=== PATIENT | female | born 1975 | race Caucasian/White ===

== ENCOUNTER 2016-09-11 20:40 | Emergency (ER) | payer OTHER ==
[~2016-09-11] VITALS: Ht 144.8 cm; Wt 72.0 kg
[~2016-09-11 20:40] MED LIST: ACET-141 PO; AMI25 PO; AMIT25TA9 PO; CLIN-72 PO; CLIN-73 PO; COLC0.6T6 PO; DAP100 PO; DOCU-159 PO; DULO30CA47 PO; DULO60CA6 PO; ERGO500014 PO; ETHA400T25 PO; FOLI-49 PO; GABA-526 PO; GABA300C PO; HYDR-3498 PO; HYDR-902 PO; HYDR2TAB15 PO; HYDR2TAB3 PO; IBUP-1542 PO; IMIT25 PO; INSU100I14 SC; INSU100I15 SC; ISON300T72 PO; LANTUS SC; LEVO500T72 PO; LEVO750T25 PO; LEVO75TA5 PO; LEVO75TA75 PO; LIDO700A6 TD; LORA0.5T PO; NITR-58 PO; ONDA-43 PO; ONDA4TAB8 PO; POLY119P17 PO; PYRA500T11 PO; PYRI50TA14 PO; RIFA300C3 PO; SIMV5TAB31 PO; SIMV5TAB50 PO
[2016-09-11 20:49] VITALS: Ht 144.8 cm; Wt 72.0 kg
[2016-09-11] MEDS ORDERED: KETOROLAC 60 MG INJ IM STA (21:39)
--- NOTE | 2016-09-11 21:50 | ERD ---
ER Documentation Chief Complaint Date/Time DATE: 09/11/16 TIME: 21:48 Chief Complaint back pain started a week ago HPI 40-year-old female presents here in emergency department for complaints of upper back pain, neck pain started 4 months ago, has been having chronically, worst last 3 days after lifting something heavy while doing grocery shopping. Patient described the pain as sharp pain, 9/10 scale, is worse upon movement. Patient did not take any medications for pain. Patient has history of degenerative disease of the lower back. Patient denies any numbness or tingling. Patient denies any fever or chills. Patient denies any dizziness. Patient denies any chest pain palpitations or regular heartbeat. Patient denies any dyspnea on exertion or dyspnea on lying down. ROS All systems reviewed and are negative except as per history of present illness. Medications Home Meds Active Scripts Hydrocodone/Acetaminophen ([place] 10-325 Tablet) 1 Each Tablet, 1 TAB PO Q6H Y for PAIN, #20 TAB Prov:SG CASTORENA DO 07/29/16 Clindamycin Hcl* (Clindamycin Hcl*) 300 Mg Capsule, 300 MG PO TID for 10 Days, CAP Prov:LUDMILA CASTORENASTVALERIAS A. DO 07/29/16 Levofloxacin* (Levaquin*) 750 Mg Tablet, 750 MG PO DAILY for 10 Days, TAB Prov:LUDMILA CASTORENASTVALERIAS Kwame. DO 07/29/16 Ibuprofen* (Motrin*) 600 Mg Tab, 600 MG PO Q6H Y for PAIN AND OR ELEVATED TEMP, #30 TAB Prov:KYLE SADLER NP 05/15/16 Nitrofurantoin Monohyd Macrocr* (Macrobid*) 100 Mg Capsr, 100 MG PO BID for 5 Days, CAP Prov:SINDHU STRONG NP 12/10/15 Hydrocodone Bit-Acetaminophen* ([place]*) 5-325 Mg Tab, 1 TAB PO Q6 Y for PAIN, # 7 TAB Prov:SINDHU STRONG NP 12/10/15 Clindamycin Hcl* (Cleocin*) 150 Mg Cap, 450 MG PO Q8 for 14 Days, CAP Prov:DANII PERKINS 03/17/15 Levofloxacin* (Levaquin*) 500 Mg Tablet, 500 MG PO DAILY, #14 TAB Prov:DANII PERKINS 03/17/15 Hydromorphone Hcl* (Dilaudid*) 2 Mg Tab, 4 MG PO Q4H Y for PAIN LEVEL 1-5, #30 Prov:DANII PERKINS 03/17/15 Reported Medications Sumatriptan Succinate* (Imitrex*) 25 Mg Tablet, 25 MG PO DAILY Y for HEADACHE, TAB May repeat after 2 hours if needed; MAX 200 mg/24 hours 03/05/15 Rifampin* (Rifampin*) 300 Mg Capsule, 600 MG PO DAILY, CAP 03/05/15 Pyridoxine Hcl* (Pyridoxine Hcl*) 50 Mg Tablet, 50 MG PO DAILY, TAB 03/05/15 Pyrazinamide* (Pyrazinamide*) 500 Mg Tablet, 1000 MG PO DAILY, TAB 03/05/15 Isoniazid* (Isoniazid*) 300 Mg Tablet, 300 MG PO DAILY, TAB 03/05/15 Ethambutol HCl* (Myambutol*) 400 Mg Tablet, 800 MG PO DAILY 03/05/15 Simvastatin* (Zocor*) 5 Mg Tablet, 5 MG PO HS, TAB 03/05/15 Lorazepam* (Lorazepam*) 0.5 Mg Tablet, 0.5 MG PO BID Y for AGITATION/ANXIETY, TAB 03/05/15 Polyethylene Glycol 3350 (GLYCOLAX) 225 Gm Powder, 17 GM PO DAILY Y for CONSTIPATION 03/05/15 Ondansetron Hcl* (Zofran*) 4 Mg Tablet, 4 MG PO Q6H Y for NAUSEA AND OR VOMITING , TAB 03/05/15 Lidocaine 5%* (Lidoderm 5%*) 5% - Patch Adh..patch, 2 PATCH TD DAILY, PATCH 03/05/15 Levothyroxine Sodium* (Levothyroxine Sodium*) 75 Mcg Tablet, 75 MCG PO AC BREAKFAST, TAB 03/05/15 Insulin Glargine,Hum.rec.anlog (Lantus Solostar) 100 Units/Ml Pen, 43 UNITS SC HS 03/05/15 Hydromorphone Hcl* (Dilaudid*) 2 Mg Tablet, 2-4 MG PO Q4 Y for PAIN, TAB 03/05/15 Insulin Lispro (Humalog) 100 U/Ml Insuln.pen, 8 UNITS SC TID, EA 6/26/15 Gabapentin* (Gabapentin*) 600 Mg Tablet, 600 MG PO TID, TAB 03/05/15 Folic Acid* (Folic Acid*) 1 Mg Tablet, 1 MG PO DAILY, TAB 03/05/15 Ergocalciferol* (Drisdol* (Vitamin D2)) 50,000 Unit Capsule, 89162 UNIT PO Q7D, CAP 03/05/15 Duloxetine Hcl* (Cymbalta*) 60 Mg Capsule.dr, 60 MG PO DAILY, CAP 03/05/15 Docusate Sodium* (Docusate Sodium*) 100 Mg Capsule, 100 MG PO BID, CAP 03/05/15 Dapsone* (Dapsone*) 100 Mg Tablet, 100 MG PO DAILY, TAB 03/05/15 Amitriptyline Hcl* (Elavil*) 25 Mg Tab, 25 MG PO HS, TAB 03/05/15 Acetaminophen* (Acetaminophen*) 500 MG Extra Strength Tablet, 500 MG PO Q6 Y for PAIN, TAB 03/05/15 Allergies Allergies: Coded Allergies: chlorhexidine (Verified Allergy, Unknown, PT HAS BEEN GETTING HYDROMORPHONE- MD AWARE, OK TO GIVE, 02/13/16) morphine (Verified Allergy, Unknown, rash, 02/13/16) tramadol (Verified Allergy, Unknown, 02/13/16) vancomycin (Verified Allergy, Unknown, 02/13/16) PMhx/Soc History of Surgery: No Anesthesia Reaction: No Hx Neurological Disorder: No Hx Respiratory Disorders: No Hx Cardiac Disorders: No Hx Psychiatric Problems: No Hx Miscellaneous Medical Probl: Yes (herniated disc,diabetes,fibromyalgia, thyroid dz ) Hx Alcohol Use: No Hx Substance Use: No Hx Tobacco Use: No FmHx Family History: No coronary disease, No diabetes, No other Physical Exam Vitals Vital Signs Date Time Temp Pulse Resp B/P Pulse Ox O2 Delivery O2 Flow Rate FiO2 09/11/16 20:49 98.2 102 20 131/78 99 Physical Exam GENERAL: The patient is well developed and appropriate for usual state of health, in no apparent distress. CHEST: Clear to auscultation bilaterally. There are no rales, wheezes or rhonchi. HEART: Regular rate and rhythm. No murmurs, clicks, rubs or gallops. No S3 or S4. ABDOMEN: Soft, nontender and nondistended. Good bowel sounds. No rebound or guarding. No gross peritonitis. No gross organomegaly or masses. No Johnson sign or McBurney point tenderness. BACK: No midline or flank tenderness. Muscle spasms noted in the paraspinal aspect of his cervical and thoracic spine, patient is able to do full range of motion without any restriction EXTREMITIES: Equal pulses bilaterally. There is no peripheral clubbing, cyanosis or edema. No focal swelling or erythema. Full range of motion. Grossly neurovascularly intact. NEURO: Alert and oriented. Cranial nerves 2-12 intact. Motor strength in all 4 extremities with 5/5 strength. Sensation grossly intact. Normal speech and gait. SKIN: There is no apparent rash or petechia. The skin is warm and dry. HEMATOLOGIC AND LYMPHATIC: There is no evidence of excessive bruising or lymphedema. No gross cervical, axillary, or inguinal lymphadenopathy. Results 24 hrs Current Medications Medications (Trade) Dose Ordered Sig/Jackie Route PRN Reason Start Time Stop Time Status Last Admin Dose Admin Diazepam (Valium) 5 mg ONCE ONCE PO 09/11/16 22:00 09/11/16 22:01 DC Ketorolac Tromethamine (Toradol) 60 mg ONCE STAT IM 09/11/16 21:39 09/11/16 21:40 DC Patient was given medication for pain here in emergency department, after treatment, patient verbalized feeling much better. Patient's pain is improved. Patient was given Valium to help with muscle spasms. PROCEDURE: CT Cervical Spine without contrast. CLINICAL INDICATION: 40-year-old female with cervical spine pain. TECHNIQUE: The study was performed on a multislice multidetector CT scanner. Spiral axial 1 mm images were obtained through the cervical spine and reformatted at 2.5 mm slice thickness without contrast. Sagittal and coronal reformations were created from the raw axial data. The images were reviewed on a PACS workstation. RADIATION DOSE: CTDIvol: 20.5 mGy DLP: 362.5 mGy-cm COMPARISON: No prior studies are available for comparison. FINDINGS: There is straightening the cervical spine with reversal of normal cervical lordosis at C4-5. The vertebral body heights are maintained. There is no evidence of fracture or dislocation. The marrow density is within normal limits. There are minimal anterior osteophytes at C5-6 with mild disc-space narrowing. The remaining intervertebral disc spaces appear normal. The cervical canal is unremarkable. There is a no bone destruction or sclerosis. The paraspinal soft tissues are unremarkable. No significant paraspinal soft tissue swelling. C2-3: The posterior margin of the disc, thecal sac and neural foramina are normal in appearance. C3-4: The posterior margin of the disc, thecal sac and neural foramina are normal in appearance. C4-5: The posterior margin of the disc, thecal sac and neural foramina are normal in appearance. C5-6: There is a broad-based 2-3 mm posterior disc/osteophyte complex. The thecal sac measures 8.9 mm midline AP diameter. The neural foramina are patent. C6-7: There is a 1-2 mm posterior disc/osteophyte complex. The thecal sac and neural foramina are patent. C7-T1: The posterior margin of the disc, thecal sac and neural foramina are normal in appearance. IMPRESSION: 1. No acute abnormality of the cervical spine. No evidence of fracture or dislocation. 2. Mild spondylosis at C5-6 without significant narrowing of the cervical thecal sac or neural foramina. 3. Straightening cervical spine which may be related to paraspinal muscle spasm versus positioning. RPTAT: HGAS .Sher Villalba MD, Date Time Electronically viewed and signed by .Sher Villalba MD, on 09/11/2016 22: 02 .S/ CC: KYLE SADLER NP PROCEDURE: CT thoracic spine without contrast. CLINICAL INDICATION: Thoracic spine pain. TECHNIQUE: The study was performed utilizing a multislice multidetector CT scanner. Direct spiral 1 mm axial sections were obtained through the thoracic spine without contrast. Coronal and sagittal reformations were obtained. The images were reviewed on a PACS workstation. RADIATION DOSE: CTDIvol: 25.2 mGy DLP: 896.1 mGy-cm COMPARISON: No prior studies are available for comparison. FINDINGS: The alignment of the thoracic spine is within normal limits. The vertebral body heights and marrow density are normal in appearance. There is no evidence of fracture there are minimal anterior osteophytes from T4-5 to T8-9 with preservation of the intervertebral disc spaces. The paraspinal soft tissues unremarkable. There is no significant narrowing of the thoracic thecal sac or neural foramina. On axial images, the posterior margin of the disc, thecal sac and neural foramina are patent at all levels. IMPRESSION: 1. No acute abnormality of the thoracic spine. No evidence of fracture. 2. Mild degenerative disc disease in the mid thoracic spine without significant narrowing of the thoracic thecal sac or neural foramina. RPTAT: HGAS .Sher Villalba MD, MD Date Time Electronically viewed and signed by .Sher Villalba MD, MD on 09/11/2016 22: 04 .S/ CC: KYLE SADLER W[employer]T WHE[employer]ER Procedures/MDM Medical Decision Making: Patient's pain is most likely consistent with a upper back pain and neck pain from degenerative disc disease. There is no suspicion for neurovascular compromise. Patient has intact sensation and circulation of the distal extremities. There is low suspicion for septic arthritis. Patient does not have any fever. Radiology exams of the affected area does not show any fracture or dislocation. No suspicion for any acute bacterial infection. Disposition: Home. Patient is given prescription for ibuprofen pain, Valium for muscle spasms, [place] for severe pain, patient states that she is able to take it without any reactions from before considering she has allergies to morphine. Patient was advised to rest avoid heavy lifting. Patient was advised that if symptoms are worse, numbness, tingling, high fever, unable to move joint, worsening symptoms, to return to emergency department immediately. Otherwise, patient is advised to follow up with the primary care doctor in 5-7 days for reevaluation of symptoms. Departure Diagnosis: Primary Impression: Back pain Back pain location: thoracic back pain Chronicity: acute Back pain laterality: bilateral Qualified Code: M54.6 - Acute bilateral thoracic back pain Additional Impression: Neck pain Condition: Stable Patient Instructions: Back Pain (Acute Or Chronic), Degenerative Disk Disease, Neck Pain, No Trauma KYLE SADLER NP Sep 11, 2016 21:50
[2016-09-11] MEDS ORDERED: DIAZEPAM 5 MG TAB PO ONE (22:00)
--- NOTE | 2016-09-11 22:03 | RADRPT ---
PROCEDURE: CT Cervical Spine without contrast. CLINICAL INDICATION: 40-year-old female with cervical spine pain. TECHNIQUE: The study was performed on a multislice multidetector CT scanner. Spiral axial 1 mm im ages were obtained through the cervical spine and reformatted at 2.5 mm slice thickness without cont rast. Sagittal and coronal reformations were created from the raw axial data. The images were review ed on a PACS workstation. RADIATION DOSE: CTDIvol: 20.5 mGyDLP: 362.5 mGy-cm COMPARISON: No prior studies are available for comparison. FINDINGS: There is straightening the cervical spine with reversal of normal cervical lordosis at C4-5. The ve rtebral body heights are maintained. There is no evidence of fracture or dislocation. The marrow d ensity is within normal limits. There are minimal anterior osteophytes at C5-6 with mild disc-space narrowing. The remaining intervertebral disc spaces appear normal. The cervical canal is unremarkabl e. There is a no bone destruction or sclerosis. The paraspinal soft tissues are unremarkable. No si gnificant paraspinal soft tissue swelling. C2-3: The posterior margin of the disc, thecal sac and neural foramina are normal in appearance. C3-4: The posterior margin of the disc, thecal sac and neural foramina are normal in appearance. C4-5: The posterior margin of the disc, thecal sac and neural foramina are normal in appearance. C5-6: There is a broad-based 2-3 mm posterior disc/osteophyte complex. The thecal sac measures 8.9 mm midline AP diameter. The neural foramina are patent. C6-7: There is a 1-2 mm posterior disc/osteophyte complex. The thecal sac and neural foramina are patent. C7-T1: The posterior margin of the disc, thecal sac and neural foramina are normal in appearance. IMPRESSION: 1. No acute abnormality of the cervical spine. No evidence of fracture or dislocation. 2. Mild spondylosis at C5-6 without significant narrowing of the cervical thecal sac or neural fora nicolasa. 3. Straightening cervical spine which may be related to paraspinal muscle spasm versus positioning. RPTAT: HGAS .Sher Villalba MD, MD Date Time Electronically viewed and signed by .Sher Villalba MD, MD on 09/11/2016 22:02 .S/
--- NOTE | 2016-09-11 22:05 | RADRPT ---
PROCEDURE: CT thoracic spine without contrast. CLINICAL INDICATION: Thoracic spine pain. TECHNIQUE: The study was performed utilizing a multislice multidetector CT scanner. Direct spiral 1 mm axial sections were obtained through the thoracic spine without contrast. Coronal and sagittal reformations were obtained. The images were reviewed on a PACS workstation. RADIATION DOSE: CTDIvol: 25.2 mGyDLP: 896.1 mGy-cm COMPARISON: No prior studies are available for comparison. FINDINGS: The alignment of the thoracic spine is within normal limits. The vertebral body heights and marrow density are normal in appearance. There is no evidence of fracture there are minimal anterior osteo phytes from T4-5 to T8-9 with preservation of the intervertebral disc spaces. The paraspinal soft t issues unremarkable. There is no significant narrowing of the thoracic thecal sac or neural foramin a. On axial images, the posterior margin of the disc, thecal sac and neural foramina are patent at a ll levels. IMPRESSION: 1. No acute abnormality of the thoracic spine. No evidence of fracture. 2. Mild degenerative disc disease in the mid thoracic spine without significant narrowing of the th oracic thecal sac or neural foramina. RPTAT: HGAS .Sher Villalba MD, MD Date Time Electronically viewed and signed by .Sher Villalba MD, on 09/11/2016 22:04 .S/
[2016-09-11] MEDS ORDERED: IBUP-1542 PO (22:17)
[2016-09-11] MEDS ORDERED: DIAZ-90 PO (22:17)
[2016-09-11] MEDS ORDERED: HYDR-902 PO (22:17)
== END 2016-09-11 22:45 | disposition home or self-care (01) ==
LOC: FTE 20:40
DX: M54.6 Pain in thoracic spine (principal); M54.2 Cervicalgia; E11.9 Type 2 diabetes mellitus without complications; Z79.4 Long term (current) use of insulin
CPT/HCPCS: 72125; 72128; J1885; Z7610; 96372

== ENCOUNTER 2017-04-23 00:14 | Emergency (ER) | payer OTHER ==
[~2017-04-23] VITALS: Ht 144.8 cm; Wt 75.5 kg
[~2017-04-23 00:14] MED LIST changes: +DIAZ-90 PO; -HYDR2TAB15 PO; +HYDR2TAB36 PO; -LEVO75TA75 PO; +SYN75 PO
[2017-04-23 00:23] VITALS: Ht 144.8 cm; Wt 75.5 kg
[2017-04-23] MEDS ORDERED: ONDANSETRON 4 MG INJ IV STA (00:47)
[2017-04-23] MEDS ORDERED: FAMOTIDINE 20 MG INJ IV STA (00:47)
[2017-04-23] MEDS ORDERED: HYDROmorphONE 1 MG/ML SYG IV STA (00:47)
[2017-04-23] MEDS ORDERED: SOD CHLORIDE 0.9% 1,000 ML IV STA (00:47)
[2017-04-23] MEDS ORDERED: DIAZEPAM 5 MG/ML SYG IV ONE (01:00)
[2017-04-23 01:37] LABS: BASOPHILS % 0.1 % (0.0-2.0); EOSINOPHILS # 0.1 10^3/ul (0.0-0.5); EOSINOPHILS % 1.5 % (0.0-7.0); HEMATOCRIT 40.7 % (37.0-47.0); HEMOGLOBIN 13.4 g/dl (12.0-16.0); LYMPHOCYTES # 2.4 10^3/ul (0.8-2.9); LYMPHOCYTES % 32.4 % (15.0-51.0); MEAN CORPUSCULAR HEMOGLOBIN 28.8 pg (29.0-33.0); MEAN CORPUSCULAR HGB CONC 32.9 g/dl (32.0-37.0); MEAN CORPUSCULAR VOLUME 87.5 fl (82.0-101.0); MEAN PLATELET VOLUME 10.2 fl (7.4-10.4); MONOCYTE # 0.4 10^3/ul (0.3-0.9); MONOCYTES % 5.2 % (0.0-11.0); NEUTROPHIL # 4.5 10^3/ul (1.6-7.5); NEUTROPHILS % 60.3 % (39.0-77.0); PLATELET COUNT 256 10^3/UL (140-415); RED BLOOD COUNT 4.65 10^6/ul (4.20-5.40); RED CELL DISTRIBUTION WIDTH 13.6 % (11.5-14.5); WHITE BLOOD COUNT 7.4 10^3/ul (4.8-10.8)
[2017-04-23] MEDS ORDERED: HYDROmorphONE 2 MG/ML SYG IV STA (01:41)
[2017-04-23 01:47] LABS: ALBUMIN 4.2 g/dl (3.3-4.9); ALBUMIN/GLOBULIN RATIO 1.27; BILIRUBIN,INDIRECT 0.1 mg/dl (0-1.1); BILIRUBIN,TOTAL 0.1 mg/dl (0.2-1.3); CREATININE 0.58 mg/dl (0.44-1.00); POTASSIUM 3.8 mmol/L (3.5-5.1); TOTAL PROTEIN 7.5 g/dl (6.1-8.1)
--- NOTE | 2017-04-23 01:54 | RADRPT ---
PROCEDURE: XR Pelvis. CLINICAL INDICATION: Trauma. TECHNIQUE: Single frontal AP view of the pelvis was performed. COMPARISON: There are no similar studies submitted for comparison. FINDINGS: No fracture is identified.The sacroiliac joints are intact.No destructive osseous lesion is identifi ed. The hips are within normal limits on this single frontal view. The soft tissues are unremarkable . IMPRESSION: No evidence of fracture. RPTAT: HIKT .Jak Francois MD, MD Date Time Electronically viewed and signed by .Jak Francois MD, on 04/23/2017 01:54 .T/
[2017-04-23 02:17] LABS: ADD UMIC YES; UR ASCORBIC ACID NEGATIVE (NEGATIVE); UR BILIRUBIN (Dip) NEGATIVE (NEGATIVE); UR BLOOD (Dip) 3+ mg/dL (NEGATIVE); UR CLARITY SLIGHTLY CLOUDY (CLEAR); UR COLOR RED (YELLOW); UR GLUCOSE (Dip) 3+ mg/dL (NEGATIVE); UR KETONES (Dip) NEGATIVE (NEGATIVE); UR LEUKOCYTE ESTERASE (Dip) NEGATIVE Leu/ul (NEGATIVE); UR NITRITE (Dip) NEGATIVE (NEGATIVE); UR RBC > 182 /HPF (0-5); UR SPECIFIC GRAVITY (Dip) 1.025 (1.003-1.030); UR SQUAMOUS EPITHELIAL CELL FEW /HPF (FEW); UR TOTAL PROTEIN (Dip) 2+ mg/dl (NEGATIVE); UR UROBILINOGEN (Dip) NEGATIVE (NEGATIVE)
[2017-04-23] MEDS ORDERED: LORAZEPAM 2 MG INJ IV ONE (02:30)
--- NOTE | 2017-04-23 02:48 | RADRPT ---
PROCEDURE: ULTRASOUND PELVIS CLINICAL INDICATION: 41-year-old female with vaginal bleeding following trauma. TECHNIQUE: Multiple sonographic images of the pelvis were obtained utilizing a transabdominal and endovaginal technique. The images were reviewed on a PACS workstation. COMPARISON: None. FINDINGS: The uterus is visualized and measures 9.4 x 4.9 x 5.8 cm. Nabothian cysts are seen within the endoce rvical region. The endometrial echo complex is within normal limits and measures 10.5 mm. There is no evidence for free fluid. The right ovary has a normal echotexture and measures 3.6 x 2.1 x 2.2 cm . There is flow identified within the right ovary. The left ovary was not visualized. No adnexal m asses are noted. IMPRESSION: Unremarkable pelvic ultrasound however the left ovary was not visualized. .Félix Servin MD, Date Time Electronically viewed and signed by .Félix Servin MD, on 04/23/2017 02:47 .M/
--- NOTE | 2017-04-23 03:09 | RADRPT ---
PROCEDURE: CT of the abdomen and pelvis without contrast CLINICAL INDICATION: Hematuria, back pain. TECHNIQUE: Spiral CT images through the abdomen and pelvis without the use of contrast. The admin istered radiation dose is CTDI 16.39 and DLP 888.01. One or more of the following dose reduction te chniques were used: automated exposure control, adjustment of the mA and/or kV according to patient size, or use of iterative reconstruction technique. COMPARISON: None FINDINGS: Lack of oral and intravenous contrast somewhat limits evaluation. There are bibasilar compressive changes. No pleural or pericardial effusion is seen.. The liver, spleen, adrenal glands and pancreas are normal in appearance. There is evidence of rehana lithiasis or biliary ductal dilatation. The kidneys are normal in size contour. There is no eviden ce of hydronephrosis or nephrolithiasis. The aorta is normal in caliber. . There is no evidence f or bowel obstruction, free air, or abscess. The appendix is normal in appearance. The colon is fec al filled. No adenopathy or ascites is seen. The uterus is anteverted. The bladder is normal. There is bilateral sacroiliac joint space narrowing and sclerosis.. IMPRESSION: No definite acute abnormality of the abdomen or pelvis. RPTAT: HCNS Physician Garfield Date Time Electronically viewed and signed by Physician Garfield on 04/23/2017 03:09 /
--- NOTE | 2017-04-23 03:31 | ERD ---
ER Documentation Chief Complaint Date/Time DATE: 04/23/17 TIME: 03:27 Chief Complaint slip & fall,lower back pain radiating to upper back,vag bleed after a fall HPI This is a 41-year-old female who presents to the emergency room for evaluation of lower back pain. This patient does say she has a history of chronic lower back pain and tonight she was cleaning the ground and she slipped and fell on her back. She denies any head injury or loss of consciousness but does state that she noted some vaginal bleeding after her fall. She denies any active bleeding at this time denies being on any blood thinners. She localizes the pain to the lower back and states is worse with movement. The patient denies any numbness or tingling in her lower extremities and denies any loss of bowel or bladder control. ROS All systems reviewed and are negative except as per history of present illness. Medications Home Meds Active Scripts Ibuprofen* (Motrin*) 600 Mg Tab, 600 MG PO Q6H Y for PAIN AND OR ELEVATED TEMP, #30 TAB Prov:KYLE SADLER CHIEF YEOMAN 09/11/16 Diazepam* (Valium*) 5 Mg Tablet, 5 MG PO Q8 Y for MUSCLE SPASMS, #10 TAB Prov:KYLE SADLER CHIEF YEOMAN 09/11/16 Hydrocodone/Acetaminophen ([place] 10-325 Tablet) 1 Each Tablet, 1 TAB PO Q6H Y for SEVERE PAIN LEVEL 7-10, #20 TAB Prov:KYLE SADLER CHIEF YEOMAN 09/11/16 Hydrocodone/Acetaminophen ([place] 10-325 Tablet) 1 Each Tablet, 1 TAB PO Q6H Y for PAIN, #20 TAB Prov:SG CASTORENA DO 07/29/16 Clindamycin Hcl* (Clindamycin Hcl*) 300 Mg Capsule, 300 MG PO TID for 10 Days, CAP Prov:SG CASTORENA DO 07/29/16 Levofloxacin* (Levaquin*) 750 Mg Tablet, 750 MG PO DAILY for 10 Days, TAB Prov:SG CASTORENA DO 07/29/16 Ibuprofen* (Motrin*) 600 Mg Tab, 600 MG PO Q6H Y for PAIN AND OR ELEVATED TEMP, #30 TAB Prov:KYLE SADLER CHIEF YEOMAN 05/15/16 Nitrofurantoin Monohyd Macrocr* (Macrobid*) 100 Mg Capsr, 100 MG PO BID for 5 Days, CAP Prov:SINDHU STRONG CHIEF YEOMAN 12/10/15 Hydrocodone Bit-Acetaminophen* ([place]*) 5-325 Mg Tab, 1 TAB PO Q6 Y for PAIN, # 7 TAB Prov:SINDHU STRONG CHIEF YEOMAN 12/10/15 Clindamycin Hcl* (Cleocin*) 150 Mg Cap, 450 MG PO Q8 for 14 Days, CAP Prov:DANII PERKINS 03/17/15 Levofloxacin* (Levaquin*) 500 Mg Tablet, 500 MG PO DAILY, #14 TAB Prov:DANII PERKINS 03/17/15 Hydromorphone Hcl* (Dilaudid*) 2 Mg Tab, 4 MG PO Q4H Y for PAIN LEVEL 1-5, #30 Prov:DANII PERKINS 03/17/15 Hydromorphone Hcl* (Hydromorphone Hcl*) 2 Mg Tablet, 2-4 MG PO Q6 Y for PAIN, # 30 TAB Prov:ARABELLA GARCIA CHIEF YEOMAN 07/23/14 Reported Medications Levothyroxine Sodium* (Synthroid*) 75 Mcg Tablet, 75 MCG PO AC BREAKFAST, TAB 03/25/15 Amitriptyline Hcl* (Amitriptyline Hcl*) 25 Mg Tablet, 25 MG PO HS, TAB 03/25/15 Colchicine* (Colcrys*) 0.6 Mg Tablet, 0.6 MG PO, TAB 03/25/15 Duloxetine Hcl* (Duloxetine Hcl*) 30 Mg Capsule.dr, 30 MG PO DAILY, CAP 03/25/15 [Lantus] No Conflict Check, 26 UNIT SC HS 03/25/15 Sumatriptan Succinate* (Imitrex*) 25 Mg Tablet, 25 MG PO DAILY Y for HEADACHE, TAB May repeat after 2 hours if needed; MAX 200 mg/24 hours 03/05/15 Rifampin* (Rifampin*) 300 Mg Capsule, 600 MG PO DAILY, CAP 03/05/15 Pyridoxine Hcl* (Pyridoxine Hcl*) 50 Mg Tablet, 50 MG PO DAILY, TAB 03/05/15 Pyrazinamide* (Pyrazinamide*) 500 Mg Tablet, 1000 MG PO DAILY, TAB 03/05/15 Isoniazid* (Isoniazid*) 300 Mg Tablet, 300 MG PO DAILY, TAB 03/05/15 Ethambutol HCl* (Myambutol*) 400 Mg Tablet, 800 MG PO DAILY 03/05/15 Simvastatin* (Zocor*) 5 Mg Tablet, 5 MG PO HS, TAB 03/05/15 Lorazepam* (Lorazepam*) 0.5 Mg Tablet, 0.5 MG PO BID Y for AGITATION/ANXIETY, TAB 03/05/15 Polyethylene Glycol 3350 (GLYCOLAX) 225 Gm Powder, 17 GM PO DAILY Y for CONSTIPATION 03/05/15 Ondansetron Hcl* (Zofran*) 4 Mg Tablet, 4 MG PO Q6H Y for NAUSEA AND OR VOMITING , TAB 03/05/15 Lidocaine 5%* (Lidoderm 5%*) 5% - Patch Adh..patch, 2 PATCH TD DAILY, PATCH 03/05/15 Levothyroxine Sodium* (Levothyroxine Sodium*) 75 Mcg Tablet, 75 MCG PO AC BREAKFAST, TAB 03/05/15 Insulin Glargine,Hum.rec.anlog (Lantus Solostar) 100 Units/Ml Pen, 43 UNITS SC HS 03/05/15 Hydromorphone Hcl* (Dilaudid*) 2 Mg Tablet, 2-4 MG PO Q4 Y for PAIN, TAB 03/05/15 Insulin Lispro (Humalog) 100 U/Ml Insuln.pen, 8 UNITS SC TID, EA 03/05/15 Gabapentin* (Gabapentin*) 600 Mg Tablet, 600 MG PO TID, TAB 03/05/15 Folic Acid* (Folic Acid*) 1 Mg Tablet, 1 MG PO DAILY, TAB 03/05/15 Ergocalciferol* (Drisdol* (Vitamin D2)) 50,000 Unit Capsule, 99044 UNIT PO Q7D, CAP 03/05/15 Duloxetine Hcl* (Cymbalta*) 60 Mg Capsule.dr, 60 MG PO DAILY, CAP 03/05/15 Docusate Sodium* (Docusate Sodium*) 100 Mg Capsule, 100 MG PO BID, CAP 03/05/15 Dapsone* (Dapsone*) 100 Mg Tablet, 100 MG PO DAILY, TAB 03/05/15 Amitriptyline Hcl* (Elavil*) 25 Mg Tab, 25 MG PO HS, TAB 03/05/15 Acetaminophen* (Acetaminophen*) 500 MG Extra Strength Tablet, 500 MG PO Q6 Y for PAIN, TAB 03/05/15 Sumatriptan Succinate* (Imitrex*) 25 Mg Tablet, 25 MG PO Y for HEADACHE, TAB May repeat after 2 hours if needed; MAX 200 mg/24 hours 07/11/14 Ondansetron Hcl* (Zofran*) 4 Mg Tab, 4 MG PO Q6H Y for NAUSEA AND OR VOMITING, TAB 06/01/14 Simvastatin* (Simvastatin*) 5 Mg Tablet, 5 MG PO HS, TAB 06/01/14 Gabapentin* (Neurontin*) 300 Mg Capsule, 600 MG PO TID, CAP 06/01/14 Folic Acid* (Folic Acid*) 1 Mg Tablet, 1 MG PO DAILY, TAB 06/01/14 Allergies Allergies: Coded Allergies: chlorhexidine (Verified Allergy, Unknown, PT HAS BEEN GETTING HYDROMORPHONE- MD AWARE, OK TO GIVE, 02/13/16) morphine (Verified Allergy, Unknown, rash, 02/13/16) tramadol (Verified Allergy, Unknown, 02/13/16) vancomycin (Verified Allergy, Unknown, 02/13/16) Uncoded Allergies: CHLORHEXEDINE (Allergy, Unknown, RASH, 09/13/16) PMhx/Soc Medical and Surgical Hx: pt denies Surgical Hx History of Surgery: No Anesthesia Reaction: No Hx Neurological Disorder: No Hx Respiratory Disorders: No Hx Cardiac Disorders: No Hx Psychiatric Problems: No Hx Miscellaneous Medical Probl: Yes (herniated disc,diabetes,fibromyalgia, thyroid dz ) Hx Alcohol Use: No Hx Substance Use: No Hx Tobacco Use: No Smoking Status: Never smoker Physical Exam Vitals Vital Signs Date Time Temp Pulse Resp B/P Pulse Ox O2 Delivery O2 Flow Rate FiO2 04/23/17 00:23 99.1 91 18 135/82 100 Physical Exam INITIAL VITAL SIGNS: Reviewed by me GENERAL: The patient is well developed, appears to be in mild distress HEENT: Pupils equal, round, and reactive to light. EOMI. There is no scleral icterus. NECK: C-spine is soft and supple, there is no meningismus. There is no cervical lymphadenopathy. LUNGS: Clear to auscultation bilaterally. There are no rales, wheezes or rhonchi. HEART: Regular rate and rhythm, no murmurs, clicks, rubs or gallops. ABDOMEN: Soft, non-tender, non-distended. There are bowel sounds in all four quadrants. No rebound or guarding. EXTREMITIES: There is no peripheral cyanosis or edema. No focal swelling or erythema. NEUROLOGICAL: The patient moves all four extremities with 5/5 strength. Cranial nerves II - XII are intact. Normal gait. Alert and oriented SKIN: There is no apparent rash or petechiae. Musculoskeletal: Tenderness to palpation of the paraspinal muscles of the lumbar spine bilaterally, no mid point tenderness HEME/LYMPHATIC: There is no evidence of excessive bruising or lymphedema. PSYCHIATRIC: The patient does not appear anxious or depressed. Result Diagram: 04/23/179904/23/1799 Results 24 hrs Laboratory Tests Test 04/23/17 01:00 04/23/17 01:50 White Blood Count 7.410^3/ul Red Blood Count 4.6510^6/ul Hemoglobin 13.4g/dl Hematocrit 40.7% Mean Corpuscular Volume 87.5fl Mean Corpuscular Hemoglobin 28.8pg Mean Corpuscular Hemoglobin Concent 32.9g/dl Red Cell Distribution Width 13.6% Platelet Count 38419^3/UL Mean Platelet Volume 10.2fl Neutrophils % 60.3% Lymphocytes % 32.4% Monocytes % 5.2% Eosinophils % 1.5% Basophils % 0.1% Nucleated Red Blood Cells % 0.0/100WBC Neutrophils # 4.510^3/ul Lymphocytes # 2.410^3/ul Monocytes # 0.410^3/ul Eosinophils # 0.110^3/ul Basophils # 0.010^3/ul Nucleated Red Blood Cells # 0.010^3/ul Sodium Level 140mmol/L Potassium Level 3.8mmol/L Chloride Level 98mmol/L Carbon Dioxide Level 25mmol/L Anion Gap 21 Blood Urea Nitrogen 12mg/dl Creatinine 0.58mg/dl Glucose Level 319mg/dl Calcium Level 9.0mg/dl Total Bilirubin 0.1mg/dl Direct Bilirubin 0.00mg/dl Indirect Bilirubin 0.1mg/dl Aspartate Amino Transf (AST/SGOT) 32IU/L Alanine Aminotransferase (ALT/SGPT) 54IU/L Alkaline Phosphatase 90IU/L Total Protein 7.5g/dl Albumin 4.2g/dl Globulin 3.30g/dl Albumin/Globulin Ratio 1.27 Lipase 237U/L Urine Color RED Urine Clarity SLIGHTLY CLOUDY Urine pH 6.0 Urine Specific [place] 1.025 Urine Ketones NEGATIVEmg/dL Urine Nitrite NEGATIVEmg/dL Urine Bilirubin NEGATIVEmg/dL Urine Urobilinogen NEGATIVEmg/dL Urine Leukocyte Esterase NEGATIVELeu/ul Urine Microscopic RBC > 182/HPF Urine Microscopic WBC 18/HPF Urine Squamous Epithelial Cells FEW/HPF Urine Hemoglobin 3+mg/dL Urine Glucose 3+mg/dL Urine Total Protein 2+mg/dl Urine Test NEGATIVE Current Medications Medications (Trade) Dose Ordered Sig/Jackie Route PRN Reason Start Time Stop Time Status Last Admin Dose Admin Sodium Chloride (NS) 1,000 ml @ 1,000 mls/hr Q1H STAT IV 04/23/17 00:47 04/23/17 01:46 DC 04/23/17 01:09 Hydromorphone HCl (Dilaudid) 1 mg ONCE STAT IV 04/23/17 00:47 04/23/17 00:49 DC 04/23/17 01:03 Ondansetron HCl (Zofran Inj) 4 mg ONCE STAT IV 04/23/17 00:47 04/23/17 00:49 DC 04/23/17 01:02 Famotidine (Pepcid Iv) 20 mg ONCE STAT IV 04/23/17 00:47 04/23/17 00:49 DC 04/23/17 01:02 Diazepam (Valium) 5 mg ONCE ONCE IV 04/23/17 01:00 04/23/17 01:01 DC 04/23/17 01:03 Hydromorphone HCl (Dilaudid) 2 mg ONCE STAT IV 04/23/17 01:41 04/23/17 01:42 DC 04/23/17 01:43 Lorazepam (Ativan) 2 mg ONCE ONCE IV 04/23/17 02:30 04/23/17 02:31 DC 04/23/17 02:39 Procedures/MDM X-ray sacrum 1V Interpreted by me: Bones: No fracture Joints: No dislocation Foreign body: None Pelvic ultrasound: Unremarkable pelvic ultrasound however the left ovary was not visualized. CT abdomen pelvis without: No definite acute abnormality of the abdomen or pelvis. This 41-year-old female presents to the ER for evaluation of lower back pain. The patient does have a history of chronic lower back pain however tonight she was cleaning the floors and slipped and fell on her back. She did have pain over the paraspinal muscles of the lumbar spine. The patient did have an x-ray of the sacrum done which was within normal limits. I did obtain lab work and a urinalysis and the urinalysis did show significant amount of red blood cells in the urine. The patient denies being on her menstrual cycle at this time and states that her last mental cycle was on 07 April. A pelvic ultrasound does not show any significant blood in the pelvis. CT of the abdomen and pelvis was obtained to rule out any renal hemorrhage or insult. CT the abdomen and pelvis is also within normal limits. The patient did receive multiple doses of morphine, Dilaudid. The patient did receive Ativan and now states that her pain is resolved. The patient states that she feels comfortable going home at this time. I advised him to return to the ER if her pain worsens and she verbalized understanding. The patient denies any bowel or bladder incontinence. Patient presents today with traumatic back pain. Although infection, malignancy, GI, , and vascular causes have been considered in this patient, the patient's clinical presentation is most consistent with a musculoskeletal cause. There is neither evidence of any acute neurologic damage , nor of loss of function and thus, advanced imaging studies have been deferred. Patient will be treated conservatively with appropriate pain control precautionary discharge instructions provided. Departure Diagnosis: Primary Impression: Fall Additional Impression: Lumbar contusion Condition: Stable RONY CHING DO Apr 23, 2017 03:31
[2017-04-23 03:42] VITALS: BP 130/81; PULSE 84; RESP 18; TEMP 99.1
== END 2017-04-23 03:43 | disposition home or self-care (01) ==
LOC: E/R 00:14
DX: S30.0XXA Contusion of lower back and pelvis, initial encounter (principal); E11.9 Type 2 diabetes mellitus without complications; R10.2 Pelvic and perineal pain; W01.0XXA Fall on same level from slipping, tripping and stumbling without subsequent striking against object, initial encounter; Y92.9 Unspecified place or not applicable; Z79.4 Long term (current) use of insulin
CPT/HCPCS: 36415; 72220; 74176; 76830; 76856; 80053; 81001; 83690; 84703; 85025; 96374; 96375; 96376; J1170; J2060; J2405; J3360; J7030; Z7502; Z7610

== ENCOUNTER 2017-06-15 21:41 | Emergency (ER) | payer OTHER ==
[~2017-06-15] VITALS: Ht 162.6 cm; Wt 75.5 kg
[~2017-06-15 21:41] MED LIST changes: -IMIT25 PO; +SUMA25TA34 PO
[2017-06-15 21:46] VITALS: Ht 162.6 cm; Wt 75.5 kg
[2017-06-15] MEDS ORDERED: KETOROLAC 60 MG INJ IM STA (22:54)
[2017-06-15] MEDS ORDERED: KETOROLAC 30 MG INJ IM STA (23:07)
--- NOTE | 2017-06-15 23:41 | ERD ---
ER Documentation Chief Complaint Date/Time DATE: 06/15/17 TIME: 23:39 Chief Complaint back pain, sp ground level fall 1 month ago HPI 41-year-old female comes in with low back pain that radiates to her mid back and upper back after a ground-level fall 1 month ago. She had a slip and fall was seen in the emergency department and had a CT of the abdomen and pelvis, as well as x-rays of the pelvis are unremarkable. She describes achy pain that is diffuse, worse with movement and better at rest. Patient does have a history of chronic back pain. Function or paresthesias or radicular symptoms. ROS All systems reviewed and are negative except as per history of present illness. Medications Home Meds Active Scripts Cyclobenzaprine Hcl* (Cyclobenzaprine Hcl*) 5 Mg Tablet, 5 MG PO Q8H Y for PAIN , #15 Prov:ZANE VILLARREAL PA-C 06/16/17 Naproxen* (Naprosyn*) 500 Mg Tablet, 500 MG PO BID Y for PAIN AND/OR INFLAMMATION, #30 TAB Prov:ZANE VILLARREAL PA-C 06/16/17 Ibuprofen* (Motrin*) 600 Mg Tab, 600 MG PO Q6H Y for PAIN AND OR ELEVATED TEMP, #30 TAB Prov:KYLE SADLER NP 09/11/16 Diazepam* (Valium*) 5 Mg Tablet, 5 MG PO Q8 Y for MUSCLE SPASMS, #10 TAB Prov:KYLE SADLER POWDER MONKEY 09/11/16 Hydrocodone/Acetaminophen ([place] 10-325 Tablet) 1 Each Tablet, 1 TAB PO Q6H Y for SEVERE PAIN LEVEL 7-10, #20 TAB Prov:KYLE SADLER POWDER MONKEY 09/11/16 Hydrocodone/Acetaminophen ([place] 10-325 Tablet) 1 Each Tablet, 1 TAB PO Q6H Y for PAIN, #20 TAB Prov:SG CASTORENA DO 07/29/16 Clindamycin Hcl* (Clindamycin Hcl*) 300 Mg Capsule, 300 MG PO TID for 10 Days, CAP Prov:SG CASTORENA DO 07/29/16 Levofloxacin* (Levaquin*) 750 Mg Tablet, 750 MG PO DAILY for 10 Days, TAB Prov:SG CASTORENA DO 07/29/16 Ibuprofen* (Motrin*) 600 Mg Tab, 600 MG PO Q6H Y for PAIN AND OR ELEVATED TEMP, #30 TAB Prov:KYLE SADLER POWDER MONKEY 05/15/16 Nitrofurantoin Monohyd Macrocr* (Macrobid*) 100 Mg Capsr, 100 MG PO BID for 5 Days, CAP Prov:SINDHU STRONG POWDER MONKEY 12/10/15 Hydrocodone Bit-Acetaminophen* ([place]*) 5-325 Mg Tab, 1 TAB PO Q6 Y for PAIN, # 7 TAB Prov:SINDHU STRONG POWDER MONKEY 12/10/15 Clindamycin Hcl* (Cleocin*) 150 Mg Cap, 450 MG PO Q8 for 14 Days, CAP Prov:DANII PERKINS 03/17/15 Levofloxacin* (Levaquin*) 500 Mg Tablet, 500 MG PO DAILY, #14 TAB Prov:DANII PERKINS 03/17/15 Hydromorphone Hcl* (Dilaudid*) 2 Mg Tab, 4 MG PO Q4H Y for PAIN LEVEL 1-5, #30 Prov:DANII PERKINS 03/17/15 Hydromorphone Hcl* (Hydromorphone Hcl*) 2 Mg Tablet, 2-4 MG PO Q6 Y for PAIN, # 30 TAB Prov:ARABELLA GARCIA POWDER MONKEY 07/23/14 Reported Medications Levothyroxine Sodium* (Synthroid*) 75 Mcg Tablet, 75 MCG PO AC BREAKFAST, TAB 03/25/15 Amitriptyline Hcl* (Amitriptyline Hcl*) 25 Mg Tablet, 25 MG PO HS, TAB 03/25/15 Colchicine* (Colcrys*) 0.6 Mg Tablet, 0.6 MG PO, TAB 03/25/15 Duloxetine Hcl* (Duloxetine Hcl*) 30 Mg Capsule.dr, 30 MG PO DAILY, CAP 03/25/15 [Lantus] No Conflict Check, 26 UNIT SC HS 03/25/15 Sumatriptan Succinate* (Imitrex*) 25 Mg Tablet, 25 MG PO DAILY Y for HEADACHE, TAB May repeat after 2 hours if needed; MAX 200 mg/24 hours 03/05/15 Rifampin* (Rifampin*) 300 Mg Capsule, 600 MG PO DAILY, CAP 03/05/15 Pyridoxine Hcl* (Pyridoxine Hcl*) 50 Mg Tablet, 50 MG PO DAILY, TAB 03/05/15 Pyrazinamide* (Pyrazinamide*) 500 Mg Tablet, 1000 MG PO DAILY, TAB 03/05/15 Isoniazid* (Isoniazid*) 300 Mg Tablet, 300 MG PO DAILY, TAB 03/05/15 Ethambutol HCl* (Myambutol*) 400 Mg Tablet, 800 MG PO DAILY 03/05/15 Simvastatin* (Zocor*) 5 Mg Tablet, 5 MG PO HS, TAB 03/05/15 Lorazepam* (Lorazepam*) 0.5 Mg Tablet, 0.5 MG PO BID Y for AGITATION/ANXIETY, TAB 03/05/15 Polyethylene Glycol 3350 (GLYCOLAX) 225 Gm Powder, 17 GM PO DAILY Y for CONSTIPATION 03/05/15 Ondansetron Hcl* (Zofran*) 4 Mg Tablet, 4 MG PO Q6H Y for NAUSEA AND OR VOMITING , TAB 03/05/15 Lidocaine 5%* (Lidoderm 5%*) 5% - Patch Adh..patch, 2 PATCH TD DAILY, PATCH 03/05/15 Levothyroxine Sodium* (Levothyroxine Sodium*) 75 Mcg Tablet, 75 MCG PO AC BREAKFAST, TAB 03/05/15 Insulin Glargine,Hum.rec.anlog (Lantus Solostar) 100 Units/Ml Pen, 43 UNITS SC HS 03/05/15 Hydromorphone Hcl* (Dilaudid*) 2 Mg Tablet, 2-4 MG PO Q4 Y for PAIN, TAB 03/05/15 Insulin Lispro (Humalog) 100 U/Ml Insuln.pen, 8 UNITS SC TID, EA 03/05/15 Gabapentin* (Gabapentin*) 600 Mg Tablet, 600 MG PO TID, TAB 03/05/15 Folic Acid* (Folic Acid*) 1 Mg Tablet, 1 MG PO DAILY, TAB 03/05/15 Ergocalciferol* (Drisdol* (Vitamin D2)) 50,000 Unit Capsule, 82495 UNIT PO Q7D, CAP 03/05/15 Duloxetine Hcl* (Cymbalta*) 60 Mg Capsule.dr, 60 MG PO DAILY, CAP 03/05/15 Docusate Sodium* (Docusate Sodium*) 100 Mg Capsule, 100 MG PO BID, CAP 03/05/15 Dapsone* (Dapsone*) 100 Mg Tablet, 100 MG PO DAILY, TAB 03/05/15 Amitriptyline Hcl* (Elavil*) 25 Mg Tab, 25 MG PO HS, TAB 03/05/15 Acetaminophen* (Acetaminophen*) 500 MG Extra Strength Tablet, 500 MG PO Q6 Y for PAIN, TAB 03/05/15 Sumatriptan Succinate* (Imitrex*) 25 Mg Tablet, 25 MG PO Y for HEADACHE, TAB May repeat after 2 hours if needed; MAX 200 mg/24 hours 07/11/14 Ondansetron Hcl* (Zofran*) 4 Mg Tab, 4 MG PO Q6H Y for NAUSEA AND OR VOMITING, TAB 06/01/14 Simvastatin* (Simvastatin*) 5 Mg Tablet, 5 MG PO HS, TAB 06/01/14 Gabapentin* (Neurontin*) 300 Mg Capsule, 600 MG PO TID, CAP 06/01/14 Folic Acid* (Folic Acid*) 1 Mg Tablet, 1 MG PO DAILY, TAB 06/01/14 Allergies Allergies: Coded Allergies: chlorhexidine (Verified Allergy, Unknown, PT HAS BEEN GETTING HYDROMORPHONE- MD AWARE, OK TO GIVE, 02/13/16) morphine (Verified Allergy, Unknown, rash, 02/13/16) tramadol (Verified Allergy, Unknown, 02/13/16) vancomycin (Verified Allergy, Unknown, 02/13/16) Uncoded Allergies: CHLORHEXEDINE (Allergy, Unknown, RASH, 09/13/16) PMhx/Soc History of Surgery: No Anesthesia Reaction: No Hx Neurological Disorder: No Hx Respiratory Disorders: No Hx Cardiac Disorders: No Hx Psychiatric Problems: No Hx Miscellaneous Medical Probl: Yes (herniated disc,diabetes,fibromyalgia, thyroid dz ) Hx Alcohol Use: No Hx Substance Use: No Hx Tobacco Use: No Smoking Status: Never smoker Physical Exam Vitals Vital Signs Date Time Temp Pulse Resp B/P Pulse Ox O2 Delivery O2 Flow Rate FiO2 06/16/17 01:12 98.4 87 16 145/81 95 Room Air 06/15/17 21:46 99.3 92 20 144/74 98 Physical Exam General: Well-developed, well-nourished. The patient appears in no acute distress. HEENT: Head is normocephalic, atraumatic. No scleral icterus. Neck: Supple. Nontender. Lungs: Clear to auscultation. Normal air movement. Heart: Regular rate and rhythm. S1 and S2 are normal. No murmurs, gallops, or rubs. Abdomen: Soft, nontender, nondistended. Bowel sounds are normoactive. Extremities: No clubbing or cyanosis. Normal pulses. Moving extremities x 4. No weakness. Back: Paraspinous tenderness of the cervical spine, thoracic spine. No midline tenderness, no crepitus. Neurologic: Alert and oriented 3. No focal deficits. Skin: Normal turgor. No rash or lesions. Results 24 hrs Current Medications Medications (Trade) Dose Ordered Sig/Jackie Route PRN Reason Start Time Stop Time Status Last Admin Dose Admin Ketorolac Tromethamine (Toradol) 60 mg ONCE STAT IM 06/15/17 22:54 06/15/17 23:07 DC Ketorolac Tromethamine (Toradol) 30 mg ONCE STAT IM 06/15/17 23:07 06/15/17 23:08 DC 06/15/17 23:10 DIAGNOSTIC IMAGING REPORT Patient: KEERTHI GANN : 1975 Age: 41 Sex: F MR #: [id number] DOS: 06/15/17 2257 Ordering MD: ZANE VILLARREAL PA-C Location: [facility] Room/Bed: PROCEDURE: XR Cervical Spine. CLINICAL INDICATION: 41 years of age, female. Trauma, pain. TECHNIQUE: Three views of the cervical spine. Lateral, AP and open mouth odontoid. COMPARISON: None available. FINDINGS: Lateral view images from the skull base to C7-T1. Normal alignment. Negative for evidence of acute fracture or traumatic subluxation. Bone mineralization appears normal. Vertebral body heights are maintained. No suspicious bone lesions. There is mild degenerative disc disease with disc space narrowing and anterior osteophytes at C5-6. Negative for abnormal prevertebral soft tissue swelling. Visualized aerodigestive tract appears normal. Lung apices are unremarkable. IMPRESSION: Negative for evidence of acute fracture or traumatic subluxation of the cervical spine. Plain films may be falsely negative for acute cervical spine injury and clinical correlation is recommended. If there is strong clinical concern for cervical spine injury, consider CT. RPTAT: HCTS Physician Holly Date Time Electronically viewed and signed by Physician Holly on 06/16/2017 00: 50 CS/ CC: ZANE VILLARREAL PA-C \ DIAGNOSTIC IMAGING REPORT Patient: KEERTHI GANN : 1975 Age: 41 Sex: F MR #: [id number] DOS: 06/15/17 2257 Ordering MD: ZANE VILLARREAL PA-C Location: [facility] Room/Bed: PROCEDURE: Thoracic Spine. CLINICAL INDICATION: of age, . Trauma, pain. TECHNIQUE: AP and lateral views of the thoracic spine. In addition, a swimmers view was obtained of the cervicothoracic junction. COMPARISON: None available. FINDINGS: There are 12 rib-bearing thoracic vertebra. Thoracic spine is visualized from T1 to L1 in the frontal projection and from T1-L1 in the lateral projection. No acute fractures are identified. The thoracic kyphosis is preserved without spondylolisthesis. Negative for evidence of traumatic subluxation. Negative for abnormal paravertebral soft tissue swelling. Normal bone mineralization. Vertebral body heights are maintained. No suspicious bone lesions are identified. Negative for significant degenerative change. Visualized lungs demonstrate mild bibasilar atelectasis. IMPRESSION: Negative for evidence of acute fracture or traumatic subluxation of the thoracic spine. Negative for significant degenerative change. RPTAT: HCTS Physician Holly Date Time Electronically viewed and signed by Physician Holly on 06/16/2017 00: 53 CS/ Procedures/MDM ED course: Urine was negative. She was given Toradol 30 mg IM. Medical decision makin-year-old female presents with back pain that is diffuse after slip and fall a month ago. Evidence of fractures in the cervical spine imaging with thoracic spine imaging. Patient's diffuse pain is most likely muscular pain. Her fall was a month ago and she had CT imaging of the abdomen pelvis, as well as the pelvis are unremarkable. She does not have any signs of cauda equina, epidural abscess, is stable for discharge. She will be given naproxen, Flexeril for pain control. Departure Diagnosis: Primary Impression: Back pain Condition: Good ZANE VILLARREAL PA-C Jun 15, 2017 23:41
--- NOTE | 2017-06-16 00:51 | RADRPT ---
PROCEDURE: XR Cervical Spine. CLINICAL INDICATION: 41 years of age, female. Trauma, pain. TECHNIQUE: Three views of the cervical spine. Lateral, AP and open mouth odontoid. COMPARISON: None available. FINDINGS: Lateral view images from the skull base to C7-T1. Normal alignment. Negative for evidence of acute fracture or traumatic subluxation. Bone mineralization appears normal. Vertebral body heights are maintained. No suspicious bone lesion s. There is mild degenerative disc disease with disc space narrowing and anterior osteophytes at C5-6. Negative for abnormal prevertebral soft tissue swelling. Visualized aerodigestive tract appears normal. Lung apices are unremarkable. IMPRESSION: Negative for evidence of acute fracture or traumatic subluxation of the cervical spine. Plain films may be falsely negative for acute cervical spine injury and clinical correlation is josé miguel mmended. If there is strong clinical concern for cervical spine injury, consider CT. RPTAT: HCTS Physician Holly Date Time Electronically viewed and signed by Physician Holly on 06/16/2017 00:50 /
--- NOTE | 2017-06-16 00:53 | RADRPT ---
PROCEDURE: Thoracic Spine. CLINICAL INDICATION: of age, . Trauma, pain. TECHNIQUE: AP and lateral views of the thoracic spine. In addition, a swimmers view was obtained o f the cervicothoracic junction. COMPARISON: None available. FINDINGS: There are 12 rib-bearing thoracic vertebra. Thoracic spine is visualized from T1 to L1 in the fronta l projection and from T1-L1 in the lateral projection. No acute fractures are identified. The thoracic kyphosis is preserved without spondylolisthesis. Negative for evidence of traumatic sub luxation. Negative for abnormal paravertebral soft tissue swelling. Normal bone mineralization. Vertebral body heights are maintained. No suspicious bone lesions are id entified. Negative for significant degenerative change. Visualized lungs demonstrate mild bibasilar atelectasis. IMPRESSION: Negative for evidence of acute fracture or traumatic subluxation of the thoracic spine. Negative for significant degenerative change. RPTAT: [facility] Physician Holly Date Time Electronically viewed and signed by Cristobal Guzman Physician on 06/16/2017 00:53 /
[2017-06-16] MEDS ORDERED: NAPR-260 PO (01:05)
[2017-06-16] MEDS ORDERED: CYCL5TAB PO (01:05)
[2017-06-16 01:12] VITALS: BP 145/81; PULSE 87; RESP 16; TEMP 98.4
== END 2017-06-16 01:13 | disposition home or self-care (01) ==
LOC: FTE 21:41
DX: M54.6 Pain in thoracic spine (principal); E11.9 Type 2 diabetes mellitus without complications
CPT/HCPCS: 72040; 72072; 96372; J1885; Z7502

== ENCOUNTER 2018-05-02 22:14 | Emergency (ER) | END 2018-05-03 00:18 | disposition home or self-care (01) ==